=== PATIENT | male | born 1995 | race Caucasian/White ===

== ENCOUNTER → 2023-01-04 | Outpatient (CLI) | payer BC ==
--- NOTE | 2023-01-05 07:19 | MR ---
EXAMINATION TYPE: MR shoulder LT wo con DATE OF EXAM: 01/04/2023 COMPARISON: None HISTORY: Left shoulder pain and limited range of motion for 3 weeks. TECHNIQUE: Multiplanar, multisequence imaging of the left shoulder is performed without contrast. FINDINGS: Rotator Cuff: Distal supraspinatus and infraspinatus tendons are intact. Rotator cuff muscle bulk is preserved. Acromioclavicular Joint: Mild to moderate narrowing with minimal superior capsular hypertrophy. Dista l acromion morphology unremarkable. Underlying fat plane is maintained. Glenohumeral Joint: Small to moderate-sized joint effusion. No significant spurring. Labrum: The labrum appears grossly intact given limitation of non-arthrogram study. Biceps Tendon: The long head of biceps is in normal location within bicipital groove. Bone marrow signal: Tiny subchondral cyst involving the posterior lateral aspect of the humeral head. Other: No additional significant abnormality is appreciated. IMPRESSION: No rotator cuff or labral tear is seen.
== END | disposition home or self-care (01) ==
LOC: RADMRIMAIN 20:15
PROVIDERS: ATTEND Orthopaedic Surgery
DX: M25.512 Pain in left shoulder (principal)